=== PATIENT | female | born 1940 | race African-American/Black ===

== ENCOUNTER 2017-04-19 13:51 | Emergency (ER) | payer OTHER ==
[~2017-04-19] VITALS: Ht 160 cm; Wt 78.0 kg
[~2017-04-19 13:51] MED LIST: ALLO100T57; ASPI-1028 PO; ATOR40TA70 PO; CLON0.1T14 PO; CLONIDINE HCL PO; COMBIV; FAM; FAMOTIDINE PO; FURO-151; FURO40TA5 PO; GLIP5TAB12 PO; HYDR100T26 PO; IPRA4AER IH; LOSA100T14 PO; LOSA50TA20 PO; METO50TA95 PO; NIFE60TA7 PO; TRAM50TA73; VIT1CAPS49 PO
[2017-04-19] MEDS ORDERED: DIPHENOXYLATE/ATROPINE 2.5/0.025MG TABLET PO ONE (15:00)
[2017-04-19 16:08] VITALS: BP 190/78
[2017-04-19 16:12] LABS: BASOPHILS % 0.8 % (0.0-2.0); EOSINOPHILS % 1.2 % (0.0-5.0); HEMATOCRIT. 35.5 % (36.0-48.0); HEMOGLOBIN. 11.5 g/dL (12.0-16.0); LYMPHOCYTES % 9.1 % (20.0-50.0); MEAN CORPUSCULAR HEMOGLOBIN 30.6 pg (28.0-32.0); MEAN CORPUSCULAR VOLUME 94.6 fL (81.0-99.0); MEAN PLATELET VOLUME 8.2 fl (7.4-10.4); MONOCYTES % 7.9 % (2.0-8.0); PLATELET 189 x1000/uL (130-400); RED BLOOD CELL COUNT 3.75 mill/uL (4.2-5.4); RED CELL DISTRIBUTION WIDTH 20.5 % (11.6-14.6)
[2017-04-19 16:13] LABS: PROTHROMBIN TIME 10.8 sec
== END 2017-04-19 18:34 | disposition home or self-care (01) ==
LOC: ER 14:22
DX: R19.7 Diarrhea, unspecified (principal); R10.30 Lower abdominal pain, unspecified; R53.81 Other malaise; R11.0 Nausea; E11.9 Type 2 diabetes mellitus without complications; J44.9 Chronic obstructive pulmonary disease, unspecified; E78.00 Pure hypercholesterolemia, unspecified; I12.0 Hypertensive chronic kidney disease with stage 5 chronic kidney disease or end stage renal disease; N18.6 End stage renal disease; Z79.82 Long term (current) use of aspirin; Z88.8 Allergy status to other drugs, medicaments and biological substances; Z99.2 Dependence on renal dialysis
CPT/HCPCS: 36415; 80048; 85025; 85610; 99284

== ENCOUNTER 2018-10-29 12:26 | Emergency (ER) | payer OTHER ==
[~2018-10-29] VITALS: Ht 160 cm; Wt 53.0 kg
[~2018-10-29 12:26] MED LIST changes: +ALBU18HF2 IH; +CHOL100044 PO; +DOCU-150 PO; -FAM; +FLUT1DIS3 IH; +FURO80TA3 PO; +LORA0.5T2 PO; +MONT10TA24 PO; -NIFE60TA7 PO; +NIFE60TA78 PO; -TRAM50TA73; +TRAM50TA94
[2018-10-29] MEDS ORDERED: ALBUTEROL (0.083%) 2.5MG/3ML NEB HHN STA (13:18)
[2018-10-29] MEDS ORDERED: IPRATROPIUM BROMIDE (0.02%) 0.5MG/2.5ML NEB HHN STA (13:18)
[2018-10-29] MEDS ORDERED: METHYLPREDNISOLONE SOD SUCC 125 MG/2 ML VIAL IV STA (13:18)
[2018-10-29] MEDS ORDERED: ASPIRIN 81MG TABLET PO ONE (13:30)
[2018-10-29 13:53] LABS: HEMATOCRIT. 34.2 % (36.0-48.0); HEMOGLOBIN. 10.8 g/dL (12.0-16.0); MEAN CORPUSCULAR VOLUME 88.8 fL (81.0-99.0); MEAN PLATELET VOLUME 8.7 fl (7.4-10.4); PLATELET 207 x1000/uL (130-400); RED BLOOD CELL COUNT 3.85 mill/uL (4.2-5.4); RED CELL DISTRIBUTION WIDTH 25.7 % (11.6-14.6)
[2018-10-29 14:43] LABS: NUCLEATED RED BLOOD CELLS 1 /100 WBC; PLATELET ESTIMATE NORMAL
[2018-10-29 15:13] LABS: CHLORIDE 107 mEq/L (98-107)
[2018-10-29 15:22] VITALS: BP 178/63
== END 2018-10-29 17:08 | disposition left against medical advice (07) ==
LOC: ER 12:26
DX: R07.2 Precordial pain (principal); R06.02 Shortness of breath; I12.0 Hypertensive chronic kidney disease with stage 5 chronic kidney disease or end stage renal disease; N18.6 End stage renal disease; Z99.2 Dependence on renal dialysis; M41.9 Scoliosis, unspecified; Z91.041 Radiographic dye allergy status; Z79.899 Other long term (current) drug therapy; F17.210 Nicotine dependence, cigarettes, uncomplicated
CPT/HCPCS: 36415; 71045; 80053; 83880; 84484; 85025; 93005; 94644; 96374; 99285; J2930; J7611

== ENCOUNTER 2018-11-02 04:30 | Inpatient (IN) | payer OTHER ==
[~2018-11-02] VITALS: Ht 154.9 cm; Wt 46.8 kg
[2018-11-02] VITALS (8 sets, daily range): BP systolic 134–159; BP diastolic 52–79
[2018-11-02] MEDS ORDERED: MORPHINE SULFATE 4 MG/ML CPJ (NOT FOR IM USE) IV STA (05:03)
[2018-11-02] MEDS ORDERED: ONDANSETRON HCL 4MG/2ML INJ IV STA (05:03)
[2018-11-02] MEDS ORDERED: NITROGLYCERIN OINT 1GM/INCH UDPKT TD ONE (05:15)
[2018-11-02] MEDS ORDERED: LABETALOL 5MG/ML SYR 20 MG/4 ML SYRINGE IV ONE (05:15)
[2018-11-02] MEDS ORDERED: LABETALOL HCL 20MG/4ML CARPUJECT IV SCH (05:30)
[2018-11-02 06:56] LABS: BASOPHILS % 0.8 % (0.0-2.0); EOSINOPHILS % 0.4 % (0.0-5.0); HEMATOCRIT. 35.9 % (36.0-48.0); HEMOGLOBIN. 11.3 g/dL (12.0-16.0); LYMPHOCYTES % 9.1 % (20.0-50.0); MEAN CORPUSCULAR HEMOGLOBIN 28.4 pg (28.0-32.0); MEAN CORPUSCULAR VOLUME 90.2 fL (81.0-99.0); MEAN PLATELET VOLUME 8.8 fl (7.4-10.4); MONOCYTES % 5.5 % (2.0-8.0); NEUTROPHILS % 84.2 % (40.0-76.0); PLATELET 217 x1000/uL (130-400); RED BLOOD CELL COUNT 3.98 mill/uL (4.2-5.4); RED CELL DISTRIBUTION WIDTH 26.3 % (11.6-14.6)
[2018-11-02 07:03] LABS: CHLORIDE 105 mEq/L (98-107)
[2018-11-02 09:03] LABS: PLATELET ESTIMATE NORMAL
[2018-11-02] MEDS ORDERED: LOSARTAN POTASSIUM 100 MG TABLET PO SCH (11:15)
[2018-11-02] MEDS: METOPROLOL TARTRATE 50MG TABLET PO SCH ×2 (12:30→20:35)
[2018-11-02] MEDS ORDERED: GUAIFENESIN 200MG/10ML SUGAR FREE UDC PO PRN (12:30)
[2018-11-02] MEDS: LOSARTAN POTASSIUM 100 MG TABLET PO SCH (12:30)
[2018-11-02] MEDS ORDERED: IPRATROPIUM/ALBUTEROL 0.5-3(2.5)MG/3ML NEB INH PRN (12:30)
[2018-11-02] MEDS ORDERED: ENOXAPARIN 40MG/0.4ML SYR SUBCUT SCH (12:30)
[2018-11-02] MEDS: FOLIC ACID/VITAMIN B COMP W-C TABLET PO SCH (12:30)
[2018-11-02] MEDS: ASPIRIN 325MG EC TABLET PO SCH (12:30)
[2018-11-02] MEDS: GUAIFENESIN/DM 600MG/30MG ER TAB 12HR PO SCH ×2 (12:30→20:35)
[2018-11-02] MEDS ORDERED: TRAMADOL 50MG TABLET PO PRN (12:30)
[2018-11-02] MEDS ORDERED: SEVELAMER CARBONATE 800 MG TABLET PO SCH (12:30)
[2018-11-02] MEDS ORDERED: DOCUSATE SODIUM 100MG CAPSULE PO PRN (12:30)
[2018-11-02] MEDS ORDERED: DIPHENHYDRAMINE 50MG/ML VIAL IV PRN (12:30)
[2018-11-02] MEDS ORDERED: ACETAMINOPHEN 325MG TABLET PO PRN (12:30)
[2018-11-02] MEDS ORDERED: CLONIDINE 0.1MG TABLET PO PRN (12:30)
[2018-11-02] MEDS ORDERED: MAGNESIUM/ALUMINUM HYDROXIDE/SIMETHICONE 30ML UDC PO PRN (12:30)
[2018-11-02] MEDS: AMLODIPINE 5MG TABLET PO SCH ×2 (12:30→20:35)
[2018-11-02] MEDS ORDERED: ENOXAPARIN 30MG/0.3ML SYR SUBCUT SCH (13:00)
[2018-11-02] MEDS ORDERED: CEFTRIAXONE 1 G PREMIX 50 ML IV SCH (13:30)
[2018-11-02] MEDS ORDERED: AZITHROMYCIN 500 MG in DEXT 5% WATER 250 ML IV SCH (14:00)
[2018-11-02 15:12] LABS: CREATINE KINASE MB FRACTION 2.6 ng/mL (0.5-3.6)
[2018-11-02] MEDS: AZITHROMYCIN 500 MG in DEXT 5% WATER 250 ML IV SCH (17:16)
[2018-11-02] MEDS: CEFTRIAXONE 1 G PREMIX 50 ML IV SCH (20:34)
[2018-11-02] MEDS: ATORVASTATIN CALCIUM 10MG TABLET PO SCH (20:35)
[2018-11-02] MEDS: FAMOTIDINE 20MG TABLET PO SCH (20:35)
[2018-11-02] MEDS: ENOXAPARIN 60MG/0.6ML SYR SUBCUT SCH (20:37)
[2018-11-02] MEDS ORDERED: ZOLPIDEM TARTRATE 5MG TABLET PO PRN (21:00)
[2018-11-02 23:10] LABS: CREATINE KINASE MB FRACTION 2.1 ng/mL (0.5-3.6)
[2018-11-03] VITALS (14 sets, daily range): BP systolic 125–149; BP diastolic 47–65
[2018-11-03 07:07] LABS: BASOPHILS % 0.7 % (0.0-2.0); EOSINOPHILS % 3.4 % (0.0-5.0); HEMATOCRIT. 32.8 % (36.0-48.0); HEMOGLOBIN. 10.2 g/dL (12.0-16.0); LYMPHOCYTES % 10.9 % (20.0-50.0); MEAN CORPUSCULAR HEMOGLOBIN 28.1 pg (28.0-32.0); MEAN CORPUSCULAR VOLUME 90.3 fL (81.0-99.0); MEAN PLATELET VOLUME 8.6 fl (7.4-10.4); MONOCYTES % 5.7 % (2.0-8.0); NEUTROPHILS % 79.3 % (40.0-76.0); PLATELET 194 x1000/uL (130-400); RED BLOOD CELL COUNT 3.64 mill/uL (4.2-5.4); RED CELL DISTRIBUTION WIDTH 25.2 % (11.6-14.6)
[2018-11-03 07:40] LABS: PHOSPHORUS 3.6 mg/dL (2.5-4.9)
[2018-11-03] MEDS: GUAIFENESIN/DM 600MG/30MG ER TAB 12HR PO SCH ×2 (08:14→20:36)
[2018-11-03] MEDS: ASPIRIN 325MG EC TABLET PO SCH (08:14)
[2018-11-03] MEDS: FOLIC ACID/VITAMIN B COMP W-C TABLET PO SCH (08:14)
[2018-11-03] MEDS: AMLODIPINE 5MG TABLET PO SCH ×2 (09:00→20:36)
[2018-11-03] MEDS: LOSARTAN POTASSIUM 100 MG TABLET PO SCH (09:00)
[2018-11-03] MEDS: METOPROLOL TARTRATE 50MG TABLET PO SCH ×2 (09:00→20:36)
[2018-11-03] MEDS: ONDANSETRON HCL 4MG/2ML INJ IV PRN (13:45)
[2018-11-03] MEDS: AZITHROMYCIN 500 MG in DEXT 5% WATER 250 ML IV SCH (18:51)
[2018-11-03] MEDS: CEFTRIAXONE 1 G PREMIX 50 ML IV SCH (20:35)
[2018-11-03] MEDS: ENOXAPARIN 60MG/0.6ML SYR SUBCUT SCH (20:35)
[2018-11-03] MEDS: ATORVASTATIN CALCIUM 10MG TABLET PO SCH (20:36)
[2018-11-03] MEDS: FAMOTIDINE 20MG TABLET PO SCH (20:36)
[2018-11-04] VITALS (12 sets, daily range): BP systolic 116–175; BP diastolic 40–61
[2018-11-04 07:16] LABS: HEMATOCRIT. 33.8 % (36.0-48.0); HEMOGLOBIN. 10.7 g/dL (12.0-16.0); MEAN CORPUSCULAR HEMOGLOBIN 28.6 pg (28.0-32.0); MEAN CORPUSCULAR VOLUME 90.6 fL (81.0-99.0); MEAN PLATELET VOLUME 8.9 fl (7.4-10.4); PLATELET 177 x1000/uL (130-400); RED BLOOD CELL COUNT 3.73 mill/uL (4.2-5.4); RED CELL DISTRIBUTION WIDTH 24.7 % (11.6-14.6)
[2018-11-04 07:48] LABS: PHOSPHORUS 3.7 mg/dL (2.5-4.9)
[2018-11-04] MEDS: GUAIFENESIN/DM 600MG/30MG ER TAB 12HR PO SCH ×2 (08:01→20:40)
[2018-11-04] MEDS: FOLIC ACID/VITAMIN B COMP W-C TABLET PO SCH (08:01)
[2018-11-04] MEDS: ASPIRIN 325MG EC TABLET PO SCH (08:02)
[2018-11-04] MEDS: AMLODIPINE 5MG TABLET PO SCH ×2 (08:02→20:41)
[2018-11-04] MEDS: LOSARTAN POTASSIUM 100 MG TABLET PO SCH (08:02)
[2018-11-04] MEDS: METOPROLOL TARTRATE 50MG TABLET PO SCH ×2 (08:02→20:40)
[2018-11-04] MEDS: ONDANSETRON HCL 4MG/2ML INJ IV PRN (10:21)
[2018-11-04 10:23] LABS: PLATELET ESTIMATE NORMAL
[2018-11-04] MEDS ORDERED: HYDRALAZINE HCL 50MG TABLET PO SCH (14:00)
[2018-11-04] MEDS: AZITHROMYCIN 500 MG in DEXT 5% WATER 250 ML IV SCH (17:14)
[2018-11-04] MEDS: CEFTRIAXONE 1 G PREMIX 50 ML IV SCH (20:27)
[2018-11-04] MEDS: ATORVASTATIN CALCIUM 10MG TABLET PO SCH (20:40)
[2018-11-04] MEDS: FAMOTIDINE 20MG TABLET PO SCH (20:41)
[2018-11-04] MEDS: ENOXAPARIN 60MG/0.6ML SYR SUBCUT SCH (20:42)
== END 2018-11-04 22:26 | disposition short-term general hospital (02) | DRG 291 ==
LOC: ER 04:30 → EDUNIT# 04:30 → 3WST 05:08 → ENRESERV 10:04
PROVIDERS: ADMIT Internal Medicine; ATTEND Internal Medicine
PROC: 5A1D70Z Performance of Urinary Filtration, Intermittent, Less than 6 Hours Per Day (ICD-10-PCS; principal; 2018-11-02)
PROC: 5A1D70Z Performance of Urinary Filtration, Intermittent, Less than 6 Hours Per Day (ICD-10-PCS; 2018-11-03)
DX: I13.2 Hypertensive heart and chronic kidney disease with heart failure and with stage 5 chronic kidney disease, or end stage renal disease (principal); I50.33 Acute on chronic diastolic (congestive) heart failure; J96.00 Acute respiratory failure, unspecified whether with hypoxia or hypercapnia; J18.9 Pneumonia, unspecified organism; N18.6 End stage renal disease; I16.1 Hypertensive emergency; E44.0 Moderate protein-calorie malnutrition; Z68.1 Body mass index [BMI] 19.9 or less, adult; J44.9 Chronic obstructive pulmonary disease, unspecified; I27.20 Pulmonary hypertension, unspecified; F17.210 Nicotine dependence, cigarettes, uncomplicated; E78.5 Hyperlipidemia, unspecified; E11.22 Type 2 diabetes mellitus with diabetic chronic kidney disease; D64.9 Anemia, unspecified; M10.9 Gout, unspecified; Z88.8 Allergy status to other drugs, medicaments and biological substances; Z99.2 Dependence on renal dialysis; Z82.49 Family history of ischemic heart disease and other diseases of the circulatory system; Z79.899 Other long term (current) drug therapy; Z86.718 Personal history of other venous thrombosis and embolism; Z87.01 Personal history of pneumonia (recurrent); Z99.81 Dependence on supplemental oxygen
CPT/HCPCS: 36415; 71045; 74176; 80048; 82550; 82553; 83036; 83735; 83880; 84100; 84145; 84484; 93306; 96374; 99285; J0456; J0696; J1650; J2270; J2405; J3490; J7050; J7060